=== PATIENT | male | born 1945 | race Caucasian/White ===

== ENCOUNTER → 2019-09-19 10:45 | Outpatient (CLI) | payer OTHER, SELFPAY ==
--- NOTE | 2019-09-19 10:49 | ECHOD_ITS ---
Reason For Study: Palpitations Procedure This was a 2D Doppler, Color Flow transthoracic echocardiogram. Myocardial strain analysis was performed in this exam to aid in the assessment of cardiac function. The study was technically difficult. Exam performed in department. Left Ventricle Normal LV size. Left ventricular systolic function is normal. The estimated ejection fraction is 60 %. Stage 1 diastolic dysfunction. No regional wall motion abnormalities noted. Right Ventricle Normal RV size. Normal systolic function. Atria Normal left atrium. Normal right atrium. Mitral Valve Normal mitral valve. Mild (1+) eccentric mitral valve insufficiency. Tricuspid Valve Normal tricuspid valve. Mild tricuspid valve insufficiency. Pulmonary artery systolic pressure is 24 mmHg. Aortic Valve Trisinus/trileaflet aortic valve. Mild diffuse aortic valve thickening. Pulmonic Valve Normal pulmonic valve. Great Vessels Normal aortic root. The pulmonary artery is normal size. Normal inferior vena cava. Pericardium/Pleural No pericardial effusion. MMode/2D Measurements & Calculations LVIDd: 4.1 cm IVSd: 1.1 cm LA dimension: 4.0 cm LVIDs: 2.3 cm LVPWd: 1.1 cm FS: 42.9 % LAV(MOD-bp): 59.9 ml LA A4 area: 23.4 cm2 RA A4 area: 15.1 cm2 LAV(MOD-bp) Indexed: 28.7 ml/m2 LAV(MOD-sp2): 43.2 ml LAV(MOD-sp4): 69.2 ml Time Measurements MV dec time: 0.23 sec Doppler Measurements & Calculations MV E max uriel: 78.7 cm/sec Lat Peak E' Uriel: 8.5 cm/sec Med Peak E' Uriel: 6.1 cm/sec MV A max uriel: 97.6 cm/sec E/E' lat: 9.2 E/E' med: 13.0 MV E/A: 0.81 MV V2 max: 105.9 cm/sec MV P1/2t max uriel: 90.5 cm/sec Ao V2 max: 160.7 cm/sec MV max P.5 mmHg MV P1/2t: 144.4 msec Ao max P.3 mmHg MV V2 mean: 57.6 cm/sec MV dec slope: 183.6 cm/sec2 MV mean P.5 mmHg MVA(P1/2t): 1.5 cm2 MV V2 VTI: 36.8 cm LV V1 max: 104.4 cm/sec PA V2 max: 115.6 cm/sec PI end-d uriel: 103.0 cm/sec LV V1 max P.4 mmHg TR max uriel: 234.1 cm/sec TR max P.9 mmHg Interpretation Summary Normal LV size. Left ventricular systolic function is normal. The estimated ejection fraction is 60 %. Stage 1 diastolic dysfunction. Pulmonary artery systolic pressure is 24 mmHg. The global longitudinal strain is normal. The global longitudinal strain = -19.3 % (normal). Ordering Physician: Graham Márquez Referring Physician: Graham Márquez Performed By: Chris Mcelroy RCS
== END ==
PROVIDERS: PCP Internal Medicine Cardiovascular Disease; Referring Provider Orthopaedic Surgery; Visit Provider Orthopaedic Surgery
DX: R00.2 Palpitations (principal); I25.10 Atherosclerotic heart disease of native coronary artery without angina pectoris
CPT/HCPCS: 93306